=== PATIENT | female | born 1960 | race Caucasian/White ===

== ENCOUNTER 2018-12-25 17:23 | Emergency (ER) | payer MEDICARE ==
[~2018-12-25] VITALS: Ht 165.1 cm; Wt 104.1 kg
[2018-12-25 17:26] VITALS: BP 148/75
[2018-12-25] MEDS ORDERED: ketorolac trometh. 30mg/ml inj. IM ONE (19:15)
== END 2018-12-25 19:43 | disposition home or self-care (01) ==
LOC: ER 17:24
DX: S93.491A Sprain of other ligament of right ankle, initial encounter (principal); F31.9 Bipolar disorder, unspecified; Z87.891 Personal history of nicotine dependence; Z88.2 Allergy status to sulfonamides; Z88.5 Allergy status to narcotic agent; X58.XXXA Exposure to other specified factors, initial encounter; Y93.89 Activity, other specified; Y92.89 Other specified places as the place of occurrence of the external cause; Y99.8 Other external cause status
CPT/HCPCS: 29515; 73600; 96372; 99283; J1885; 29405

== ENCOUNTER 2019-01-21 19:19 | Emergency (ER) | payer MEDICARE ==
[~2019-01-21] VITALS: Ht 165.1 cm; Wt 103.0 kg
[2019-01-21 19:32] VITALS: BP 137/81
[2019-01-21] MEDS ORDERED: TRAM50TA2 PO (20:18)
== END 2019-01-21 20:26 | disposition home or self-care (01) ==
LOC: ER 19:19
DX: S40.021A Contusion of right upper arm, initial encounter (principal); F31.9 Bipolar disorder, unspecified; F10.99 Alcohol use, unspecified with unspecified alcohol-induced disorder; Z88.2 Allergy status to sulfonamides; Z88.5 Allergy status to narcotic agent; Z79.899 Other long term (current) drug therapy; X58.XXXA Exposure to other specified factors, initial encounter; Y93.89 Activity, other specified; Y92.89 Other specified places as the place of occurrence of the external cause; Y99.8 Other external cause status; Y90.9 Presence of alcohol in blood, level not specified
CPT/HCPCS: 73090; 99283

== ENCOUNTER 2019-01-30 09:30 | Emergency (ER) | payer MEDICARE, MEDICAID ==
[~2019-01-30] VITALS: Ht 165.1 cm; Wt 102.8 kg
[2019-01-30 09:37] VITALS: BP 111/67
== END 2019-01-30 12:57 | disposition home or self-care (01) ==
LOC: ER 09:31
DX: S40.021A Contusion of right upper arm, initial encounter (principal); S50.11XA Contusion of right forearm, initial encounter; F31.9 Bipolar disorder, unspecified; Z88.6 Allergy status to analgesic agent; Z88.2 Allergy status to sulfonamides; X58.XXXA Exposure to other specified factors, initial encounter; Y93.89 Activity, other specified; Y92.89 Other specified places as the place of occurrence of the external cause; Y99.8 Other external cause status
CPT/HCPCS: 93971; 99284

== ENCOUNTER 2019-05-24 02:27 | Emergency (ER) | payer MEDICARE, MEDICAID ==
--- NOTE | 2019-05-24 02:56 | NUR ---
PT NOT IN LOBBY WHEN CALLED TO TRIAGE
--- NOTE | 2019-05-24 03:06 | NUR ---
PT NOT IN LOBBY WHEN CALLED TO TRIAGE
--- NOTE | 2019-05-24 03:32 | NUR ---
NOT IN LOBBY WHEN CALLED TO TRIAGE
== END 2019-05-24 04:05 | disposition left against medical advice (07) ==
LOC: ER 02:28
DX: Z00.00 Encounter for general adult medical examination without abnormal findings (principal); Z53.21 Procedure and treatment not carried out due to patient leaving prior to being seen by health care provider

== ENCOUNTER 2019-07-26 14:57 | Emergency (ER) | payer MEDICARE, MEDICAID ==
[~2019-07-26] VITALS: Ht 165.1 cm; Wt 104.5 kg
[2019-07-26 15:07] VITALS: BP 144/85
--- NOTE | 2019-07-26 16:19 | NUR ---
Knee immobilizer placed by QIAN Enriquez. Pt refused crutches as she has a pair at home.
== END 2019-07-26 16:24 | disposition home or self-care (01) ==
LOC: ER 14:58
DX: M25.561 Pain in right knee (principal); Z88.6 Allergy status to analgesic agent; Z88.2 Allergy status to sulfonamides; Z88.5 Allergy status to narcotic agent; W18.30XA Fall on same level, unspecified, initial encounter; Y93.89 Activity, other specified; Y92.89 Other specified places as the place of occurrence of the external cause; Y99.9 Unspecified external cause status
CPT/HCPCS: 29505; 73564; 99284

== ENCOUNTER 2019-08-01 10:11 | Emergency (ER) | payer MEDICARE, MEDICAID ==
[~2019-08-01] VITALS: Ht 165.1 cm; Wt 106.3 kg
[2019-08-01 10:17] VITALS: BP 121/76
[2019-08-01] MEDS ORDERED: NEOM3.5O9 OP (10:58)
== END 2019-08-01 11:27 | disposition home or self-care (01) ==
LOC: ER 10:12
DX: H10.9 Unspecified conjunctivitis (principal); H57.12 Ocular pain, left eye; Z88.6 Allergy status to analgesic agent; Z88.2 Allergy status to sulfonamides; Z88.5 Allergy status to narcotic agent; Z79.2 Long term (current) use of antibiotics
CPT/HCPCS: 99282

== ENCOUNTER 2020-07-16 08:15 | Emergency (ER) | payer MEDICARE, MEDICAID ==
[~2020-07-16] VITALS: Ht 160 cm; Wt 96.7 kg
[~2020-07-16 08:15] MED LIST: NEOM3.5O9 OP
[2020-07-16 08:23] VITALS: BP 120/78
[2020-07-16] MEDS ORDERED: ketorolac trometh. 30mg/ml inj. IM ONE (09:50)
[2020-07-16] MEDS ORDERED: ketorolac trometh inj. 60 MG/2 ML VIAL IM ONE (09:50)
== END 2020-07-16 10:01 | disposition home or self-care (01) ==
LOC: ER 08:16
DX: T14.8XXA Other injury of unspecified body region, initial encounter (principal); M25.511 Pain in right shoulder; Z72.89 Other problems related to lifestyle; Z88.2 Allergy status to sulfonamides; Z88.6 Allergy status to analgesic agent; Z88.5 Allergy status to narcotic agent; Z79.2 Long term (current) use of antibiotics; W18.39XA Other fall on same level, initial encounter; Y93.89 Activity, other specified; Y92.89 Other specified places as the place of occurrence of the external cause; Y99.8 Other external cause status
CPT/HCPCS: 73030; 73080; 96372; 99284; J1885

== ENCOUNTER 2021-07-10 11:11 | Emergency (ER) | payer MEDICARE, MEDICAID ==
[~2021-07-10] VITALS: Ht 165.1 cm; Wt 115.9 kg
[2021-07-10 12:27] LABS: ALANINE AMINOTRANSFERASE 24 U/L (12-78); ALBUMIN 3.4 G/DL (3.4-5.0); ALBUMIN/GLOBULIN RATIO 0.9 (1.1-1.5); ALKALINE PHOSPHATASE 106 IU/L (46-116); ANION GAP 14 (8-16); ASPARTATE AMINO TRANSFERASE 16 U/L (10-37); BILIRUBIN,TOTAL 0.2 MG/DL (0.1-1.0); BLOOD UREA NITROGEN 17 MG/DL (7-18); BUN/CREATININE RATIO 20.5 (6.6-38.0); CALCIUM 8.7 MG/DL (8.5-10.1); CHLORIDE 104 MMOL/L (99-107); CREATININE 0.83 MG/DL (0.40-0.90); GLUCOSE 160 MG/DL (70-104); POTASSIUM 3.5 MMOL/L (3.5-5.1); SODIUM 143 MMOL/L (135-145); TOTAL CARBON DIOXIDE 25.1 MMOL/L (24-32); TOTAL PROTEIN 7.1 G/DL (6.4-8.2); eGFR 71 ML/MIN
[2021-07-10 12:31] LABS: BASOPHILS # (AUTO) 0.1 X10'3 (0-0.2)
[2021-07-10 12:33] LABS: BASOPHILS % (AUTO) 0.8 % (0-1); EOSINOPHILS # (AUTO) 0.1 X10'3 (0-0.9); EOSINOPHILS % (AUTO) 2.1 % (0-6); HEMATOCRIT 43.9 % (35.0-45.0); HEMOGLOBIN 14.6 g/dl (12.0-16.0); LYMPHOCYTES # (AUTO) 2.1 X10'3 (1.1-4.8); LYMPHOCYTES % (AUTO) 29.6 % (21-51); MEAN CORPUSCULAR HEMOGLOBIN 28.9 PG (27.0-31.0); MEAN CORPUSCULAR HGB CONC 33.2 g/dL (33.0-36.5); MEAN PLATELET VOLUME 9.8 FL (7.4-10.4); MONOCYTES # (AUTO) 0.4 X10'3 (0-0.9); MONOCYTES % (AUTO) 6.3 % (2-12); NEUTROPHILS # (AUTO) 4.4 X10'3 (1.8-7.7); NEUTROPHILS % (AUTO) 61.2 % (42-75); PLATELET COUNT 309 X10'3 (140-440); RED BLOOD COUNT 5.05 X10'6 (4.20-5.60); RED CELL DISTRIBUTION WIDTH 14.2 % (11.5-14.5); WHITE BLOOD COUNT 7.1 X10'3 (4.5-11.0)
[2021-07-10 13:33] VITALS: BP 113/66
[2021-07-10 14:09] VITALS: BP 118/70
== END 2021-07-10 14:10 | disposition home or self-care (01) ==
LOC: ER 11:12
DX: R07.89 Other chest pain (principal); Z20.822 Contact with and (suspected) exposure to COVID-19; J44.9 Chronic obstructive pulmonary disease, unspecified; K21.9 Gastro-esophageal reflux disease without esophagitis; Z87.81 Personal history of (healed) traumatic fracture; Z72.89 Other problems related to lifestyle; Z98.890 Other specified postprocedural states
CPT/HCPCS: 71045; 80053; 83880; 84484; 85025; 87635; 93005; 99285; C9803

== ENCOUNTER 2021-10-31 17:51 | Emergency (ER) | payer MEDICARE, MEDICAID ==
[~2021-10-31] VITALS: Ht 165.1 cm; Wt 109.1 kg
[2021-10-31 18:32] LABS: BASOPHILS # (AUTO) 0.1 X10'3 (0-0.2); BASOPHILS % (AUTO) 0.7 % (0-1); EOSINOPHILS # (AUTO) 0.3 X10'3 (0-0.9); EOSINOPHILS % (AUTO) 4.3 % (0-6); HEMATOCRIT 44.4 % (35.0-45.0); LYMPHOCYTES # (AUTO) 2.6 X10'3 (1.1-4.8); MEAN CORPUSCULAR HEMOGLOBIN 29.1 PG (27.0-31.0); MEAN CORPUSCULAR HGB CONC 33.8 g/dL (33.0-36.5); MEAN PLATELET VOLUME 9.8 FL (7.4-10.4); MONOCYTES # (AUTO) 0.5 X10'3 (0-0.9); NEUTROPHILS # (AUTO) 4.2 X10'3 (1.8-7.7); PLATELET COUNT 279 X10'3 (140-440); RED BLOOD COUNT 5.16 X10'6 (4.20-5.60); RED CELL DISTRIBUTION WIDTH 13.6 % (11.5-14.5); WHITE BLOOD COUNT 7.6 X10'3 (4.5-11.0)
[2021-10-31 18:47] LABS: ALANINE AMINOTRANSFERASE 30 U/L (12-78); ALBUMIN 3.6 G/DL (3.4-5.0); ALKALINE PHOSPHATASE 96 IU/L (46-116); ANION GAP 12 (8-16); ASPARTATE AMINO TRANSFERASE 18 U/L (10-37); BILIRUBIN,TOTAL 0.5 MG/DL (0.1-1.0); BLOOD UREA NITROGEN 15 MG/DL (7-18); BUN/CREATININE RATIO 18.3 (6.6-38.0); CALCIUM 9.1 MG/DL (8.5-10.1); CHLORIDE 104 MMOL/L (99-107); CREATININE 0.82 MG/DL (0.40-0.90); GLUCOSE 112 MG/DL (70-104); POTASSIUM 3.3 MMOL/L (3.5-5.1); SODIUM 140 MMOL/L (135-145); TOTAL CARBON DIOXIDE 24.3 MMOL/L (24-32); TOTAL PROTEIN 7.2 G/DL (6.4-8.2); eGFR 72 ML/MIN
[2021-11-01] MEDS ORDERED: potassium Cl 20 mEq SR tablet PO ONE (00:40)
[2021-11-01 01:01] VITALS: BP 102/69
[2021-11-09] MEDS ORDERED: NITR0.4T48 SL (19:02)
== END 2021-11-01 01:02 | disposition left against medical advice (07) ==
LOC: ER 17:53
DX: R07.9 Chest pain, unspecified (principal); Z53.21 Procedure and treatment not carried out due to patient leaving prior to being seen by health care provider
CPT/HCPCS: 36415; 71045; 80053; 83880; 84484; 85025; 93005

== ENCOUNTER 2021-11-25 13:50 | Emergency (ER) | payer MEDICARE, MEDICAID ==
[~2021-11-25] VITALS: Ht 165.1 cm; Wt 113.2 kg
[~2021-11-25 13:50] MED LIST changes: +NITR0.4T48 SL
--- NOTE | 2021-11-25 16:21 | NUR ---
Pt connected to telephoner for further observation, no acute distress noted.
[2021-11-25 16:53] LABS: CLARITY,URINE SLIGHTLY CLOUDY (Clear); COLOR,URINE YELLOW (Yellow); GLUCOSE, URINE NEGATIVE (Neg); KETONES,URINE NEGATIVE (Neg); LEUKOCYTE ESTERASE ,URINE SMALL (Neg); NITRITES, URINE NEGATIVE (Neg); OCCULT BLOOD,URINE TRACE-INTACT (Neg); PROTEIN,URINE NEGATIVE (Neg); UROBILINOGEN,URINE 0.2 E.U/dL (0.2-1.0)
[2021-11-25 16:54] LABS: UA COLLECTION TYPE CLN CATCH MIDSTREAM
[2021-11-25 16:59] LABS: BASOPHILS # (AUTO) 0.1 X10'3 (0-0.2); BASOPHILS % (AUTO) 0.5 % (0-1); EOSINOPHILS # (AUTO) 0.3 X10'3 (0-0.9); EOSINOPHILS % (AUTO) 2.8 % (0-6); HEMATOCRIT 40.8 % (35.0-45.0); HEMOGLOBIN 13.8 g/dl (12.0-16.0); LYMPHOCYTES # (AUTO) 3.1 X10'3 (1.1-4.8); LYMPHOCYTES % (AUTO) 29.3 % (21-51); MEAN CORPUSCULAR HEMOGLOBIN 29.6 PG (27.0-31.0); MEAN CORPUSCULAR HGB CONC 33.9 g/dL (33.0-36.5); MEAN CORPUSCULAR VOLUME 87.2 FL (78-98); MEAN PLATELET VOLUME 9.4 FL (7.4-10.4); MONOCYTES # (AUTO) 0.7 X10'3 (0-0.9); MONOCYTES % (AUTO) 6.5 % (2-12); NEUTROPHILS # (AUTO) 6.4 X10'3 (1.8-7.7); NEUTROPHILS % (AUTO) 60.9 % (42-75); PLATELET COUNT 281 X10'3 (140-440); RED BLOOD COUNT 4.68 X10'6 (4.20-5.60); RED CELL DISTRIBUTION WIDTH 13.5 % (11.5-14.5); WHITE BLOOD COUNT 10.5 X10'3 (4.5-11.0)
--- NOTE | 2021-11-25 16:59 | NUR ---
Disposition pending, will continue to monitor.
[2021-11-25 17:03] LABS: MUCUS STRANDS MANY /LPF (Neg); SQUAMOUS EPITHELIAL CELL,UR MANY /LPF (FEW)
[2021-11-25 17:05] LABS: BACTERIA,URINE 1+ /HPF (Neg); RBC,URINE 0-2 /HPF (0-2)
[2021-11-25 18:00] LABS: ALANINE AMINOTRANSFERASE 27 U/L (12-78); ALBUMIN 3.5 G/DL (3.4-5.0); ALKALINE PHOSPHATASE 91 IU/L (46-116); ANION GAP 10 (8-16); ASPARTATE AMINO TRANSFERASE 16 U/L (10-37); BILIRUBIN,TOTAL 0.3 MG/DL (0.1-1.0); BLOOD UREA NITROGEN 19 MG/DL (7-18); BUN/CREATININE RATIO 21.1 (6.6-38.0); CALCIUM 8.8 MG/DL (8.5-10.1); CHLORIDE 105 MMOL/L (99-107); GLUCOSE 100 MG/DL (70-104); POTASSIUM 3.4 MMOL/L (3.5-5.1); SODIUM 141 MMOL/L (135-145); TOTAL CARBON DIOXIDE 26.3 MMOL/L (24-32); eGFR 64 ML/MIN
[2021-11-25 18:08] LABS: MAGNESIUM 2.2 MG/DL (1.5-2.4)
[2021-11-25] MEDS ORDERED: POTASSIUM BICARB 20meq eff tab 20 MEQ TABLET.EFF PO ONE (18:10)
[2021-11-25 19:03] VITALS: BP 122/66
== END 2021-11-25 19:06 | disposition home or self-care (01) ==
LOC: ER 13:51
DX: E87.6 Hypokalemia (principal); R53.1 Weakness; J44.9 Chronic obstructive pulmonary disease, unspecified; K21.9 Gastro-esophageal reflux disease without esophagitis; F31.9 Bipolar disorder, unspecified; Z88.2 Allergy status to sulfonamides; Z88.5 Allergy status to narcotic agent; Z88.6 Allergy status to analgesic agent
CPT/HCPCS: 36415; 71045; 80053; 81001; 83735; 84443; 84484; 85025; 93005; 99285

== ENCOUNTER 2022-03-16 12:31 | Emergency (ER) | payer MEDICARE, MEDICAID ==
[~2022-03-16] VITALS: Ht 165.1 cm; Wt 113.4 kg
[2022-03-16 13:07] LABS: ALANINE AMINOTRANSFERASE 20 U/L (12-78); ALBUMIN 3.5 G/DL (3.4-5.0); ALKALINE PHOSPHATASE 79 IU/L (46-116); ANION GAP 10 (8-16); ASPARTATE AMINO TRANSFERASE 16 U/L (10-37); BASOPHILS % (AUTO) 0.6 % (0-1); BILIRUBIN,TOTAL 0.4 MG/DL (0.1-1.0); BLOOD UREA NITROGEN 19 MG/DL (7-18); BUN/CREATININE RATIO 19.4 (6.6-38.0); CALCIUM 8.8 MG/DL (8.5-10.1); CHLORIDE 106 MMOL/L (99-107); CREATININE 0.98 MG/DL (0.40-0.90); EOSINOPHILS # (AUTO) 0.1 X10'3 (0-0.9); EOSINOPHILS % (AUTO) 1.4 % (0-6); GLUCOSE 121 MG/DL (70-104); HEMATOCRIT 44.9 % (35.0-45.0); HEMOGLOBIN 14.6 g/dl (12.0-16.0); LYMPHOCYTES # (AUTO) 3.1 X10'3 (1.1-4.8); LYMPHOCYTES % (AUTO) 36.3 % (21-51); MEAN CORPUSCULAR HEMOGLOBIN 28.9 PG (27.0-31.0); MEAN CORPUSCULAR HGB CONC 32.4 g/dL (33.0-36.5); MEAN CORPUSCULAR VOLUME 89.2 FL (78-98); MEAN PLATELET VOLUME 10.2 FL (7.4-10.4); MONOCYTES # (AUTO) 0.5 X10'3 (0-0.9); MONOCYTES % (AUTO) 5.7 % (2-12); NEUTROPHILS # (AUTO) 4.8 X10'3 (1.8-7.7); PLATELET COUNT 280 X10'3 (140-440); POTASSIUM 3.5 MMOL/L (3.5-5.1); RED BLOOD COUNT 5.04 X10'6 (4.20-5.60); RED CELL DISTRIBUTION WIDTH 14.3 % (11.5-14.5); SODIUM 141 MMOL/L (135-145); TOTAL CARBON DIOXIDE 25.4 MMOL/L (24-32); TOTAL PROTEIN 6.9 G/DL (6.4-8.2); WHITE BLOOD COUNT 8.6 X10'3 (4.5-11.0); eGFR 58 ML/MIN
[2022-03-16] MEDS ORDERED: LOP25T PO (14:49)
[2022-03-16 15:03] VITALS: BP 130/80
== END 2022-03-16 15:10 | disposition home or self-care (01) ==
LOC: ER 12:31
DX: R07.9 Chest pain, unspecified (principal); I10 Essential (primary) hypertension; J45.909 Unspecified asthma, uncomplicated; J44.9 Chronic obstructive pulmonary disease, unspecified; K21.9 Gastro-esophageal reflux disease without esophagitis; F31.9 Bipolar disorder, unspecified; Z88.6 Allergy status to analgesic agent; Z79.899 Other long term (current) drug therapy
CPT/HCPCS: 36415; 71045; 80053; 83880; 84484; 85025; 93005; 99285

== ENCOUNTER 2022-07-04 00:15 | Emergency (ER) | payer MEDICARE, MEDICAID ==
[~2022-07-04] VITALS: Ht 165.1 cm; Wt 113.6 kg
[~2022-07-04 00:15] MED LIST changes: +LOP25T PO
[2022-07-04 00:39] VITALS: BP 101/70
== END 2022-07-04 05:08 | disposition left against medical advice (07) ==
LOC: ER 00:16
DX: R10.9 Unspecified abdominal pain (principal); Z53.21 Procedure and treatment not carried out due to patient leaving prior to being seen by health care provider
CPT/HCPCS: 99281

== ENCOUNTER 2023-09-19 06:35 | Day surgery (SDC) | payer MEDICARE, MEDICAID ==
[2023-09-12 15:35] LABS: BASOPHILS # (AUTO) 0.1 X10'3 (0-0.2); BASOPHILS % (AUTO) 0.7 % (0-1); EOSINOPHILS # (AUTO) 0.4 X10'3 (0-0.9); EOSINOPHILS % (AUTO) 4.5 % (0-6); LYMPHOCYTES % (AUTO) 21.1 % (21-51); MEAN CORPUSCULAR HEMOGLOBIN 29.4 PG (27.0-31.0); MEAN CORPUSCULAR HGB CONC 33.3 g/dL (33.0-36.5); MEAN CORPUSCULAR VOLUME 88.5 FL (78-98); MEAN PLATELET VOLUME 10.1 FL (7.4-10.4); MONOCYTES # (AUTO) 0.6 X10'3 (0-0.9); MONOCYTES % (AUTO) 6.1 % (2-12); NEUTROPHILS # (AUTO) 6.3 X10'3 (1.8-7.7); NEUTROPHILS % (AUTO) 67.6 % (42-75); PRE OP HEMATOCRIT 41.2 % (35.0-45.0); PRE OP HEMOGLOBIN 13.7 g/dL (12.0-16.0); PRE OP PLATELET COUNT 321 X10'3 (140-440); PRE OP WHITE BLOOD COUNT 9.4 10'3 (4.8-10.8); RED BLOOD COUNT 4.66 X10'6 (4.20-5.60); RED CELL DISTRIBUTION WIDTH 14.2 % (11.5-14.5)
[2023-09-12 15:51] LABS: PRE OP PROTIME 10.3 SECONDS (9.0-12.0)
[2023-09-12 16:01] LABS: BILIRUBIN,URINE NEGATIVE (Neg); CLARITY,URINE CLOUDY (Clear); COLOR,URINE YELLOW (Yellow); GLUCOSE, URINE NEGATIVE (Neg); KETONES,URINE NEGATIVE (Neg); LEUKOCYTE ESTERASE ,URINE SMALL (Neg); NITRITES, URINE NEGATIVE (Neg); OCCULT BLOOD,URINE TRACE-INTACT (Neg); PROTEIN,URINE 30 mg/dl (Neg); UROBILINOGEN,URINE 0.2 E.U/dL (0.2-1.0)
[2023-09-12 16:02] LABS: ALBUMIN 3.2 G/DL (3.4-5.0); ALBUMIN/GLOBULIN RATIO 0.9 (1.1-1.5); ALKALINE PHOSPHATASE 131 IU/L (46-116); BLOOD UREA NITROGEN 20 MG/DL (7-18); BUN/CREATININE RATIO 21.1 (10.0-20.0); CALCIUM 8.7 MG/DL (8.5-10.1); CHLORIDE 106 MMOL/L (99-107); CREATININE 0.95 MG/DL (0.40-0.90); PRE OP ALT 40 U/L (30-65); PRE OP ANION GAP 4 (8-16); PRE OP AST 41 U/L (10-37); PRE OP BILIRUB, TOTAL 0.4 MG/DL (0.0-1.0); PRE OP GLUCOSE 101 MG/DL (70-104); PRE OP SODIUM 139 MMOL/L (135-145); TOTAL PROTEIN 6.9 G/DL (6.4-8.2); eGFR 60 ML/MIN
[2023-09-12 16:06] LABS: UA COLLECTION TYPE CLN CATCH MIDSTREAM
[2023-09-12 16:16] LABS: MUCUS STRANDS MODERATE /LPF (Neg)
[2023-09-12 16:17] LABS: WBC,URINE 50-100 /HPF (0-4)
[2023-09-12 16:18] LABS: SQUAMOUS EPITHELIAL CELL,UR MODERATE /LPF (FEW); TRANSITIONAL EPI CELLS,URINE MANY /HPF; WBC CLUMPS,URINE MANY /HPF (NEGATIVE)
[2023-09-12 16:19] LABS: BACTERIA,URINE 1+ /HPF (Neg); RBC,URINE 20-50 /HPF (0-2)
[2023-09-19] VITALS (18 sets, daily range): BP systolic 95–134; BP diastolic 54–69; PULSE 87–100; RESP 12–27; TEMP 98.4; O2SAT 90–96
[~2023-09-19] VITALS: Ht 165.1 cm; Wt 100.0 kg
[2023-09-19] MEDS: cefazolin 2gm/D5W 100mL 100 ML IV ONE (05:30)
[~2023-09-19 06:35] MED LIST changes: +ALBU8HFA INH; +DICY10CA88 PO; +DOCUMENT DATE & TIME OF BETA-BLOCKER PO ONE; +FLUT50BL2; +FURO-150 PO; -LOP25T PO; +MAGN250T11 PO; +METO200T37 PO; -NEOM3.5O9 OP; -NITR0.4T48 SL; +OMEP-419 PO; +POTA20PA40 PO; +QUELT PO; +TIOT4MIS2; +VENL25TA48 PO
[2023-09-19] MEDS: famotidine 20mg tablet PO ONE (06:51)
[2023-09-19] MEDS: ringers solution, lacted 1,000 ML IV SCH (06:52)
[2023-09-19] MEDS ORDERED: BUPIVAcaine 0.5% inj/PF 0 ML ONE (07:02)
[2023-09-19] MEDS ORDERED: LIDOcaine 1% W/epiNEPHrine 1:100,000 20ml vial ONE (07:02)
[2023-09-19] MEDS ORDERED: cloNIDine hcl/PF 100mcg/ml inj ONE (08:11)
[2023-09-19] MEDS ORDERED: midazolam 1 mg/ML 2ml injection ONE (08:20)
[2023-09-19] MEDS ORDERED: fentaNYL/PF 50MCG/1 ML 2ML syringe ONE ×2 (08:20→11:29)
[2023-09-19] MEDS ORDERED: propofol inj 20 ML IV ONE (08:21)
[2023-09-19] MEDS ORDERED: dexamethasone sod phosphate 4mg/ml inj. ONE (08:21)
[2023-09-19] MEDS ORDERED: ringers solution, lacted 1,000 ML IV SCH (08:30)
[2023-09-19] MEDS ORDERED: proCHLORperazine 10 MG/2 ml inj IV PRN (08:30)
[2023-09-19] MEDS ORDERED: morphine 2 MG/ML inj. syringe IV PRN (08:30)
[2023-09-19] MEDS ORDERED: morphine 4 MG/ML inj SYRINge IV PRN (08:30)
[2023-09-19] MEDS ORDERED: meperidine/PF 25mg/ml syringe IV PRN ×2 (08:30)
[2023-09-19] MEDS ORDERED: sevoflurane 250ml liquid IH ONE (08:39)
[2023-09-19] MEDS ORDERED: rocuronium 10mg/ml inj IV ONE (09:47)
[2023-09-19] MEDS ORDERED: ROPIVAcaine 0.5% (5mg/ml) 30ml vial ONE ×2 (09:48)
[2023-09-19] MEDS: bacitracin 15gm ointment TP ONE (10:44)
[2023-09-19] MEDS ORDERED: bacitracin 15gm ointment TP ONE (11:55)
[2023-09-19] MEDS ORDERED: ondansetron/PF 4mg/2ml inj ONE (12:17)
[2023-09-19] MEDS: meperidine/PF 25mg/ml syringe IV PRN (12:44)
[2023-09-19] MEDS: ondansetron/PF 4mg/2ml inj IV PRN (12:47)
[2023-09-19] MEDS: polyvinyl alcohol eye drops 15ML BOTTLE RIGHTEYE PRN (14:25)
== END 2023-09-19 14:44 | disposition home or self-care (01) ==
LOC: PAS 06:35
PROVIDERS: ATTEND Podiatrist Foot & Ankle Surgery
DX: M19.071 Primary osteoarthritis, right ankle and foot (principal); G89.18 Other acute postprocedural pain; I10 Essential (primary) hypertension; E66.9 Obesity, unspecified; J44.9 Chronic obstructive pulmonary disease, unspecified; G47.33 Obstructive sleep apnea (adult) (pediatric); G43.909 Migraine, unspecified, not intractable, without status migrainosus; G62.9 Polyneuropathy, unspecified; F41.9 Anxiety disorder, unspecified; F32.A Depression, unspecified; Z85.41 Personal history of malignant neoplasm of cervix uteri; Z90.710 Acquired absence of both cervix and uterus; Z98.51 Tubal ligation status; Z98.890 Other specified postprocedural states; Z68.36 Body mass index [BMI] 36.0-36.9, adult; Z88.2 Allergy status to sulfonamides; Z88.5 Allergy status to narcotic agent; Z88.6 Allergy status to analgesic agent; Z88.8 Allergy status to other drugs, medicaments and biological substances
CPT/HCPCS: 28725; 28737; 36415; 64445; 71046; 73620; 80053; 81001; 82948; 85025; 85610; 85730; 87088; A6222; C1713; J0690; J0735; J1100; J2175; J2250; J2405; J2704; J2795; J3010; J3490; J7030; J7120; Z7506; Z7508; Z7512; 76000; A4618; A6253; A6449; A6455; A7000

== ENCOUNTER 2025-03-26 11:31 | Outpatient (CLI) | payer BC ==
[~2025-03-26 11:31] MED LIST changes: -DOCUMENT DATE & TIME OF BETA-BLOCKER PO ONE
--- NOTE | 2025-03-26 13:11 | RADIOLOGY REPORT ---
CLINICAL INDICATION: Primary osteoarthritis, right ankle and foot TECHNIQUE: DI ANKLE, COMPLETE(3VW MIN), DI FOOT, COMPLETE (3VW MIN) Comparison: ELBOW, COMPLETE (3VW MIN) on DOS: 07/16/20 FINDINGS/IMPRESSION: : Hardware status post tibiotalar arthrodesis without evidence of complication. Additional hardware is noted within the calcaneus, midfoot and spanning the 1st interphalangeal joint, also without complication. 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 Soft tissue elements are grossly intact and normal in appearance. hs:y
== END 2025-03-26 23:59 | disposition home or self-care (01) ==
LOC: RAD 11:31
PROVIDERS: ATTEND Podiatrist Foot & Ankle Surgery
DX: M19.071 Primary osteoarthritis, right ankle and foot (principal); M25.571 Pain in right ankle and joints of right foot; M79.671 Pain in right foot; M85.871 Other specified disorders of bone density and structure, right ankle and foot; Z98.1 Arthrodesis status
CPT/HCPCS: 73610; 73630